=== PATIENT | female | born 1965 | race Two or more races ===

== ENCOUNTER 2020-10-11 11:39 | Emergency (ER) | payer SELFPAY ==
[~2020-10-11] VITALS: Ht 165.1 cm; Wt 72.6 kg
[2020-10-11] MEDS ORDERED: LORazepam 0.5 MG TAB PO ONE (13:45)
[2020-10-11] MEDS ORDERED: ONDANSETRON ODT 4 MG TAB PO ONE (13:45)
[2020-10-11 14:40] LABS: Basophils # (auto) 0.1 10 ^3/uL (0-0.2); Basophils % (auto) 0.7 % (0.0-2.0); Eosinophils # (auto) 0.1 10 ^3/uL (0-0.8); Eosinophils % (auto) 0.6 % (0.0-7.0); Hematocrit 43.7 % (36.0-46.0); Hemoglobin 15.1 g/dL (12.2-16.2); Lymphocytes # (auto) 1.9 10 ^3/uL (0.4-5.4); Mean Corpuscular Hemoglobin 31.3 pg (28.0-32.0); Mean Corpuscular Hgb Conc. 34.6 g/dL (32.0-36.0); Mean Corpuscular Volume 90.4 fL (80.0-100.0); Monocytes # (auto) 0.4 10 ^3/uL (0-1.3); Monocytes % (auto) 4.2 % (0.0-12.0); Neutrophils # (auto) 7.1 10 ^3/uL (1.6-8.6); Neutrophils % (auto) 74.5 % (37.0-80.0); Nucleated Red Blood Cells % 0.1 %; Platelet Count (auto) 331 10^3/uL (140-450); Red Blood Cells 4.83 10^6/uL (4.0-5.20); Red Cell Distribution Width 13.8 % (11.8-14.3); White Blood Cell 9.5 10^3/uL (4.4-10.8)
[2020-10-11 15:03] LABS: BUN/Creatinine Ratio 17.6; Calcium 8.9 mg/dL (8.5-10.1); Potassium 3.8 mmol/L (3.5-5.1)
[2020-10-11 15:32] VITALS: BP 126/75
== END 2020-10-11 15:50 | disposition home or self-care (01) ==
LOC: ER 11:39 → EDBD 11:39 → ER 15:37
DX: H81.10 Benign paroxysmal vertigo, unspecified ear (principal)
CPT/HCPCS: 36415; 70450; 80048; 85025; 99284; Q0162